=== PATIENT | male | born 1980 | race Caucasian/White ===

== ENCOUNTER 2016-12-02 18:20 | Emergency (ER) | payer OTHER ==
[2016-12-02 18:23] VITALS: BP 180/104; PULSE 71; RESP 22; TEMP 98.7; O2SAT 98
--- NOTE | 2016-12-02 18:33 | PD ---
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 Patient states symptoms worse with sitting or trying to get out of bed. Denies bowel or bladder symptoms. No specific injuries. Patient has had similar symptoms in the past. V/S Stable Patient to K pod. Data Data Last Documented VS Vital Signs Date Time Temp Pulse Resp B/P Pulse Ox O2 Delivery O2 Flow Rate FiO2 12/02/16 18:23 98.7 71 22 180/104 98 MDM Medical Record Reviewed: Yes Supervised Visit with NATACHA: Yes Scripts No Active Prescriptions or Reported Meds Condition: Stable Flynn Walker Dec 02, 2016 18:33
[2016-12-02] MEDS ORDERED: ORPHENADRINE INJ 60 MG/2 ML AMP IM ONE (18:45)
[2016-12-02] MEDS ORDERED: KETOROLAC TROMETHAMINE 60 MG/2 ML (IM) VIAL IM ONE (18:45)
[2016-12-02] MEDS ORDERED: IBUP800T23 PO (18:48)
[2016-12-02] MEDS ORDERED: ROBA500T PO (18:48)
--- NOTE | 2016-12-02 18:50 | PD ---
HPI Chief Complaint: Back/ Neck Pain or Injury Time Seen by Provider: 18:42 (Mary Carmen Camargo) Travel History International Travel<30 days: No Contact w/Intl Traveler<30days: No Traveled to known affect area: No (Mary Carmen Camargo) History of Present Illness HPI 36-year-old male presents to emergency Department with complaint of low back pain since yesterday. Denies new or recent injury. Pain radiates down his legs with certain movements. 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 He has history of low back pain but not consistent with this pain. Reports occasional paresthesias to bilateral feet depending upon movements he makes; denies at this time. Denies loss of sensation, decreased range motion, decreased strength to bilateral lower extremities. Denies fever, chills, nausea, vomiting, abdominal pain. Denies encopresis, incontinence, saddle anesthesias. Denies IV drug use or cancer. 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 Pain is decreased when sitting down, laying down, standing. No known allergies. No other modifying factors or associated signs and symptoms. (Mary Carmen Camargo) PFSH Past Medical History Cancer: No Cardiovascular Problems: No Diabetes: No Diminished Hearing: No Glaucoma: No Hiatal Hernia: No Hypertension: No Respiratory: Yes (ASTHMA A CHILD) Thyroid Disease: No Tetanus Vaccination: < 5 Years Influenza Vaccination: Yes (Mary Carmen Camargo) Past Surgical History Abdominal Surgery: No Cardiac Surgery: No Ear Surgery: No Endocrine Surgery: No Eye Surgery: No Genitourinary Surgery: Yes (VASECTOMY) Gynecologic Surgery: No Oral Surgery: Yes (WISDOM TEETH REMOVAL) Thoracic Surgery: No Other Surgery: Yes (SINUS) (Mary Carmen Camargo) Social History Alcohol Use: No Tobacco Use: No Substance Use: No (Mary Carmen Camargo) Allergies-Medications (Allergen,Severity, Reaction): Coded Allergies: No Known Allergies (Verified , 12/02/16) Reported Meds & Prescriptions Reported Meds & Active Scripts Active Tramadol (Tramadol HCl) 50 Mg Tab 50 Mg PO Q6H PRN Robaxin (Methocarbamol) 500 Mg Tab 500 Mg PO QID PRN Ibuprofen 800 Mg Tab 800 Mg PO Q6HR PRN (Flynn Walker) Review of Systems Except as stated in HPI: all other systems reviewed are Neg (Mary Carmen Camargo) Physical Exam Narrative GENERAL: Well-nourished, well-developed male patient, in no acute distress; afebrile, nontoxic-appearing SKIN: Warm and dry. HEAD: Atraumatic. Normocephalic. EYES: Pupils equal and round. No scleral icterus. No injection or drainage. ENT: Mucosa pink and moist. Airway patent. NECK: Trachea midline. CARDIOVASCULAR: Regular rate. RESPIRATORY: No accessory muscle use. GASTROINTESTINAL: Rounded. MUSCULOSKELETAL: Bilateral lower extremities supple and non-tense with 2+ pedal pulses and sensory intact; with full range of motion and 5/5 strength. 2 + DTRs eye laterally. Active dorsiflexion and extension of bilateral feet. Bilateral straight leg raise is positive for low back pain. Ambulatory with normal gait. Sitting up in bed at 90. No obvious deformities. No clubbing. No cyanosis. No edema. BACK: Midline point tenderness on palpation of the lumbar spine. No step-off. No obvious deformities. Patient is ambulatory in the room with a normal gait. NEUROLOGICAL: Awake and alert. Oriented 3. No obvious cranial nerve deficits. Motor grossly within normal limits. Normal speech. Moves all extremities. 5/5 strength to all extremities. Sensory intact. PSYCHIATRIC: Appropriate mood and affect; insight and judgment normal. (Mary Carmen Camargo) Data Data Last Documented VS Vital Signs Date Time Temp Pulse Resp B/P Pulse Ox O2 Delivery O2 Flow Rate FiO2 12/02/16 18:23 98.7 71 22 180/104 98 (Flynn Walker) Orders Spine, Lumbar - Ltd (Ap & Lat) (12/02/16 18:40) Ketorolac Inj (Toradol Inj) (12/02/16 18:45) Orphenadrine Inj (Norflex Inj) (12/02/16 18:45) (Flynn Walker) [facility] Medical Decision Making Medical Screen Exam Complete: Yes Emergency Medical Condition: Yes Medical Record Reviewed: Yes Differential Diagnosis Low back pain, low back strain, lumbar radiculopathy Narrative Course 36-year-old male with low back pain. Denies new or recent injury. His pain is midline to the lumbar spine. Patient is ambulatory in the room with a normal gait. He denies IV drug use, cancer. Denies fever, chills. Denies encopresis , incontinence, saddle anesthesias. Blood pressure elevated in the ER; patient denies history of high blood pressure and does not take medications. He is asymptomatic. Toradol and Norflex ordered. Lumbar x-rays ordered. Lumbar x-ray concludes: Lumbar Spine X-Ray 12/02/16 1840 Signed Impressions: Service Date/Time: Friday, December 02, 2016 18:55 - CONCLUSION: Negative exam. Nbaor Smith MD Patient was given a prescription for tramadol, ibuprofen, and Robaxin for home. Blood pressure recheck prior to discharge continues to be elevated. Patient continues to be a symptomatic. Instructed patient to follow up with primary care provider if blood pressure continues to be elevated. Patient verbalizes understanding and agreement with treatment plan. Patient is medically cleared and stable for discharge. Discussed reasons to return to the emergency department. Instructed patient to follow up with primary care provider. Patient agrees with treatment plan. The patients vital signs are stable and the patient is stable for outpatient follow-up and treatment. Patient discharged home, stable and in no acute distress. (Mary Carmen Camargo) Diagnosis Primary Impression: Low back pain Qualified Code: M54.5 - Midline low back pain, unspecified chronicity, with sciatica presence unspecified Referrals: Primary Care Physician Patient Instructions: Acute Low Back Pain (ED), General Instructions, Low Back Strain (ED), Lower Back Exercises (ED) Departure Forms: Tests/Procedures, Work Release Enter return to work date: Dec 05, 2016 Additional Instructions: Tylenol or ibuprofen as directed and as needed for pain Robaxin as prescribed and as needed for muscle spasms Heating pad and/or ice to affected area to reduce pain Avoid aggravating activities; increase activity as tolerated Follow-up with primary care provider Return to emergency department immediately with worsening of symptoms Med/Other Pt SpecificInfo: Prescription(s) given (Mary Carmen Camargo) Scripts Tramadol 50 Mg Tab50 Mg PO Q6H PRN (PAIN) #20 TAB Prov:Josue Bull MD 12/02/16 Methocarbamol (Robaxin)500 Mg Aqu635 Mg PO QID PRN (MUSCLE SPASM) #30 TAB Ref 0 Prov:Mary Carmen Camargo 12/02/16 Ibuprofen 800 Mg [id number] Mg PO Q6HR PRN (PAIN) #30 TAB Ref 0 Prov:RamanMary Carmen SNOW 12/02/16 Disposition: 01 DISCHARGE HOME Condition: Stable Mary Carmen Camargo Dec 02, 2016 18:50 Flynn Walker Dec 02, 2016 20:03
--- NOTE | 2016-12-02 19:56 | RADRPT ---
EXAM DATE/TIME: 12/02/2016 18:55 [facility] COMPARISON: No previous studies available for comparison. INDICATIONS : Complains of lower back pain. No known injury. MEDICAL HISTORY : None. SURGICAL HISTORY : None. ENCOUNTER: Initial ACUITY: 4 - 6 days PAIN SCORE: 10/10 LOCATION: L-Spine FINDINGS: Two view examination was performed. There are five non-rib bearing vertebral bodies. The vertebral bodies are in normal alignment without evidence of subluxation or scoliosis. The disc spaces are kilo ntained. The pedicles and transverse processes are intact. Bony mineralization is normal. No fract ure is identified. CONCLUSION: Negative exam. Nabor Smith MD on December 02, 2016 at 19:54 Board Certified Radiologist. This report was verified electronically.
[2016-12-02] MEDS ORDERED: TRAM50TA PO (20:00)
[2016-12-02 20:05] VITALS: BP 193/99
== END 2016-12-02 20:19 | disposition home or self-care (01) ==
LOC: NEPK 18:20
DX: M54.5 Low back pain (principal)
CPT/HCPCS: 72100; 96372; 99283; J1885; J2360